=== PATIENT | female | born 1985 | race Caucasian/White ===

== ENCOUNTER 2016-05-27 14:45 | Emergency (ER) | payer OTHER ==
[~2016-05-27] VITALS: Ht 167.6 cm; Wt 69.4 kg
[~2016-05-27 14:45] MED LIST: FIORINAL 50-321 EACH PO; IBUPROFEN800 M1 PO; KEFLEX500 M1 PO; MOBIC7.5 M1 PO
[2016-05-27 14:50] VITALS: BP 153/84
--- NOTE | 2016-05-27 15:48 | ED UPPER/LOWER EXTREMITY COMPL ---
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 UNKNOWN LAST TETANUS SHOT. Triage Nurses Notes Reviewed? yes Onset: Abrupt Duration: better Timing: single episode today Severity: mild Severity Numbers: 1 Pain/Injury Location: Right: 3rd finger. Method of Injury: laceration : No Patient currently breastfeeds: No HPI: Patient is a 30-year-old female who presents emergency that while at work today patient accidentally cut the tip of her right third digit off while slicing meat and which bleeding immediately occurred however was controlled prior to arrival. Tetanus is up-to-date. Patient is right arm dominant. No medications prior to arrival. Past History Travel History Traveled to [place] past 21 day No Medical History Any Pertinent Medical History? 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 No Review of Systems Review of Systems Constitutional: Reports: no symptoms. EENTM: Reports: no symptoms. Respiratory: Reports: no symptoms. Cardiovascular: Reports: no symptoms. Gastrointestinal/Abdominal: Reports: no symptoms. Genitourinary: Reports: no symptoms. Musculoskeletal: Reports: see HPI, joint pain. Skin: Reports: see HPI. Neurological/Psychological: Reports: no symptoms. Hematologic/Endocrine: Reports: see HPI, bleeding. Immunological: Reports: no symptoms. All Other Systems: Reviewed and Negative Physical Exam Physical Exam General Appearance: no apparent distress, alert Neurologic/Tendon: normal sensation, normal motor functions, normal tendon functions, responds to pain, no evidence tendon injury Skin: normal color, warm/dry Comments: Well-developed well-nourished no apparent distress. HEENT: Atraumatic, extraocular motion intact Neck: Supple, no lymphadenopathy Back: Nontender Respiratory: No respiratory distress Extremities: No edema, full range of motion Neuro: Alert and oriented x3 Psych: Mood affect normal, normal memory normal judgment. Diagram Hands Front 1) 5 mm superficial flap laceration noted with margins revised no active bleeding FULL ACTIVE range of motion with flexion and extension no bone exposure no tendon deficit no nail involvement sensation intact CAPILLARY refill intact Progress Differential Diagnosis: arterial insufficiency, compartment syndrome, contusion, dislocation, fracture, septic arthritis, sprain, tendon injury Plan of Care: Laceration site was irrigated extensively with peroxide and 300 CC STERILE WATER Margins were intact prior to Dermabond placement in which 3 layers of Dermabond was applied. 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
== END 2016-05-27 16:29 ==
LOC: ERH 14:45
DX: S61.212A Laceration without foreign body of right middle finger without damage to nail, initial encounter (principal); W31.82XA Contact with other commercial machinery, initial encounter